=== PATIENT | male | born 1945 | race Caucasian/White ===

== ENCOUNTER → 2017-01-03 | Outpatient (CLI) | payer MEDICARE, OTHER ==
[~2017-01-03] MED LIST: ASPI81TA81; CELE100C PO; CENTTAB9; LISI40TA PO; METO50TA PO; PROM6.256 PO; SERT25TA83 PO; SIMVPOW
[2017-01-03 13:36] LABS: ALKALINE PHOSPHATASE 57 U/L (45-117); ALT (GPT) 22 U/L (12-78); ANION GAP 8 MEQ/L (5-15); AST (GOT) 21 U/L (15-37); BLOOD UREA NITROGEN 20 MG/DL (7-18); CHLORIDE 105 MEQ/L (98-107); GLOMERULAR FILTRATION RATE 60 ML/MIN (>89); GLUCOSE,FASTING 125 MG/DL (74-99); POTASSIUM 4.9 MEQ/L (3.5-5.1); SODIUM (NA) 142 MEQ/L (136-145)
[2017-01-03 14:28] LABS: HEMOGLOBIN A1b 1.8 %; HEMOGLOBIN Ao 84.2 %; HEMOGLOBIN LA1C 2.3 %; HEMOGLOBIN P3 4.1 %
== END ==
LOC: PLAB 10:54
PROVIDERS: ATTEND Family Medicine
DX: E11.9 Type 2 diabetes mellitus without complications (principal)
CPT/HCPCS: 36415; 80053; 83036

== ENCOUNTER 2017-06-27 15:23 | Inpatient (IN) | payer MEDICARE, OTHER ==
[~2017-06-27] VITALS: Ht 180.3 cm; Wt 92.1 kg
[~2017-06-27 15:23] MED LIST changes: -CENTTAB9; -METO50TA PO; -SERT25TA83 PO; +SIMV10TA PO; -SIMVPOW
[2017-06-27] MEDS ORDERED: IOHEXOL 350 MG/ML 10 ML VIAL (for RAD DIAG) IVCONTRAST ONE (15:24)
[2017-06-27 15:26] VITALS: BP 165/88; PULSE 88; RESP 20; TEMP 97.7; O2SAT 98
--- NOTE | 2017-06-27 15:36 | PD ---
Physical Exam Time Seen by Provider: 15:33 Narrative 71yo M c/o R leg pain and swelling today. Dr. Ernst sent for US. SOB yesterday, but not today. Had chest pain w/ breathing yesterday too, but none today. Had chest x-ray yesterday which showed a little bit of fluid per patient. Hx DVT in left leg. Denies anticoagulants. Patient seen in triage. VS reviewed. Awaiting bed placement. Data Data Last Documented VS Vital Signs Date Time Temp Pulse Resp B/P (MAP) Pulse Ox O2 Delivery O2 Flow Rate FiO2 06/27/17 15:26 97.7 88 20 165/88 (113) 98 Room Air MDM Supervised Visit with HIPOLITO: Carmen Louis Jun 27, 2017 15:36
[2017-06-27 15:48] VITALS: BP 130/70; PULSE 80; RESP 19; TEMP 98.7; O2SAT 98
[2017-06-27] MEDS ORDERED: [UNRECOGNIZED DRUG - SUPPLY] (16:12)
--- NOTE | 2017-06-27 16:40 | RADRPT ---
EXAM DATE/TIME: 06/27/2017 16:08 [facility] COMPARISON: No previous studies available for comparison. INDICATIONS : Right leg swelling. MEDICAL HISTORY : Hypertension. Arthritis. Deep venous thrombosis. Hernia. Carpal tunnel. SURGICAL HISTORY : Tonsillectomy. Carpal tunnel syndrome. Cholecystectomy. Knee surgery. ENCOUNTER: Initial ACUITY: 1 day PAIN SCORE: 7/10 LOCATION: Right leg. TECHNIQUE: Venous ultrasound of the leg was performed from the inguinal ligament to the proximal calf. Real-rebecca e, color Doppler and spectral tracing, compression and augmentation techniques were used. FINDINGS: There is noncompressible occlusive thrombosis in the distal superficial femoral vein, popliteal vein and right peroneal vein. This demonstrated no color flow. The visualized portion of the right iliac v ein and common femoral vein are patent. The greater saphenous vein is patent as well. CONCLUSION: Deep venous thrombosis. Sean Mendoza MD on June 27, 2017 at 16:36 Board Certified Radiologist. This report was verified electronically.
[2017-06-27 16:50] LABS: BICARBONATE 27.6 MEQ/L (21.0-32.0)
[2017-06-27] MEDS ORDERED: XARE15TA PO (16:55)
--- NOTE | 2017-06-27 16:55 | PD ---
HPI . Right leg swelling Chief Complaint: Edema Time Seen by Provider: 15:45 Travel History International Travel<30 days: No Contact w/Intl Traveler<30days: No Traveled to known affect area: No History of Present Illness HPI This patient presents with the acute onset of swelling of the right lower extremity. He noticed it this morning. He states that his Is a little sore. He denies any chest pain or shortness of breath. He denies any known risk factors for DVT such as recent travel, hospitalization, surgery, history of cancer, smoking. His pain is exacerbated by walking. He rates it 7/10. PFSH Past Medical History Arthritis: Yes (NECK, KNEE) Cardiovascular Problems: Yes Diminished Hearing: No Gastrointestinal Disorders: Yes GERD: Yes (history of) Hypertension: Yes Medical other: Yes (DVT) Neurologic: No Respiratory: No Past Surgical History Abdominal Surgery: Yes (hernia) Cholecystectomy: Yes Tonsillectomy: Yes Social History Alcohol Use: No Tobacco Use: No Substance Use: No Allergies-Medications (Allergen,Severity, Reaction): Coded Allergies: benazepril (Verified Adverse Reaction, Intermediate, cough, 06/27/17) In early 2010, pt decided he wanted to resume ANTONIO as it worked on BP and cough wasnt that bad. minimal cough since. captopril (Verified Adverse Reaction, Intermediate, cough, 06/27/17) In 2010, pt decided he wanted to resume ANTONIO as it worked on BP and cough wasnt that bad. minimal cough since. enalaprilat (Verified Adverse Reaction, Intermediate, cough, 06/27/17) In 2010, pt decided he wanted to resume ANTONIO as it worked on BP and cough wasnt that bad. minimal cough since. fosinopril (Verified Adverse Reaction, Intermediate, cough, 06/27/17) In early 2010, pt decided he wanted to resume ANTONIO as it worked on BP and cough wasnt that bad. minimal cough since. lisinopril (Verified Adverse Reaction, Intermediate, cough, 06/27/17) In early 2010, pt decided he wanted to resume ANTONIO as it worked on BP and cough wasnt that bad. minimal cough since. quinapril (Verified Adverse Reaction, Intermediate, cough, 06/27/17) In 2010, pt decided he wanted to resume ANTONIO as it worked on BP and cough wasnt that bad. minimal cough since. Reported Meds & Prescriptions Reported Meds & Active Scripts Active Xarelto (Rivaroxaban) 15 Mg Tab 15 Mg PO Q12HR 21 Days [Oral Appliance Thpy] 1 Applic .XX DIRECTED Oral Appliance Therapy (Treatment Code E0486) For Treatment of Obstructive Sleep Apnea (G47.33) Lisinopril 40 Mg Tab 40 Mg PO DAILY Simvastatin 10 Mg Tab 10 Mg PO DAILY Celebrex (Celecoxib) 100 Mg Cap 100 Mg PO BID PRN Reported Aspir-81 (Aspirin) 81 Mg Tabdr 81 Mg DAILY Review of Systems Except as stated in HPI: all other systems reviewed are Neg Cardiovascular: No: Chest Pain or Discomfort Respiratory: No: Shortness of Breath Musculoskeletal: Positive: Myalgias, Edema Physical Exam Narrative GENERAL: Awake and alert and in no acute distress. SKIN: Warm and dry. There is no discoloration of his right lower extremity. HEAD: Atraumatic. Normocephalic. EYES: Pupils equal and round. NECK: Trachea midline. CARDIOVASCULAR: Regular rate and rhythm. RESPIRATORY: No accessory muscle use. MUSCULOSKELETAL: No obvious deformities. Mild swelling of the right lower extremity. Some calf tenderness. NEUROLOGICAL: Awake and alert. No obvious cranial nerve deficits. Motor grossly within normal limits. Normal speech. PSYCHIATRIC: Appropriate mood and affect; insight and judgment normal. Data Data Last Documented VS Vital Signs Date Time Temp Pulse Resp B/P (MAP) Pulse Ox O2 Delivery O2 Flow Rate FiO2 06/27/17 15:48 98.7 80 19 130/70 (90) 98 Room Air Orders Orders Us Leg Venous Doppler (06/27/17 15:45) Basic Metabolic Panel (Bmp) (06/27/17 15:46) ^ Saline Lock (06/27/17 15:46) Ct Pulmonary Angiogram (06/27/17 15:46) Iohexol 350 Inj (Omnipaque 350 Inj) (06/27/17 15:24) Labs Laboratory Tests Test 06/27/17 16:12 Blood Urea Nitrogen 21 MG/DL Creatinine 1.02 MG/DL Random Glucose 103 MG/DL Calcium Level 8.6 MG/DL Sodium Level 141 MEQ/L Potassium Level 5.0 MEQ/L Chloride Level 107 MEQ/L Carbon Dioxide Level 27.6 MEQ/L Anion Gap 6 MEQ/L Estimat Glomerular Filtration Rate 72 ML/MIN MDM Medical Decision Making Medical Screen Exam Complete: Yes Emergency Medical Condition: Yes Differential Diagnosis Differential diagnosis of leg pain includes but is not limited to lumbar radiculopathy, arthritis, myalgias, DVT. Narrative Course Patient presents for the evaluation of right lower extremity pain and swelling. He is having no chest pain or shortness of breath. Last Impressions Lower Extremity Ultrasound 06/27/17 1545 Signed Impressions: Service Date/Time: May 16:08 - CONCLUSION: Deep venous thrombosis. Sean Mendoza MD CT for PE: 1. Pulmonary embolism in both lower lobe pulmonary arteries. 2. Small left effusion with airspace disease in the posterior left lower lobe. This patient should be a good candidate for treatment with an oral anticoagulant such as Xarelto. He is hemodynamically stable without any difficulty breathing. Diagnosis Primary Impression: DVT (deep venous thrombosis) Qualified Codes: I82.4Y1 - Acute embolism and thrombosis of unspecified deep veins of right proximal lower extremity Additional Impression: Pulmonary emboli Qualified Codes: I26.99 - Other pulmonary embolism without acute cor pulmonale Referrals: Mendel Ernst MD 1 week Patient Instructions: Deep Vein Thrombosis Prevention (DC), General Instructions, Pulmonary Embolism (DC) Scripts Rivaroxaban (Xarelto) 15 Mg Tab 15 MG PO Q12HR for Blood Clot Prevention for 21 Days, TAB 0 Refills Prov: Leanna Kimball MD 06/27/17 Disposition: 01 DISCHARGE HOME Condition: Stable Leanna Kimball MD Jun 27, 2017 16:55
--- NOTE | 2017-06-27 17:36 | RADRPT ---
EXAM DATE/TIME: 06/27/2017 17:12 [facility] COMPARISON: No previous studies available for comparison. INDICATIONS : Short of breath with right leg pain. Deep venous thrombosis on ultrasound. IV CONTRAST: 60 cc Omnipaque 350 (iohexol) IV RADIATION DOSE: 19.62 CTDIvol (mGy) MEDICAL HISTORY : Hypertension. DVT SURGICAL HISTORY : Cholecystectomy. Hernia repair. ENCOUNTER: Initial ACUITY: 1 day PAIN SCALE: 4/10 LOCATION: Right leg pain and swelling TECHNIQUE: Volumetric scanning of the chest was performed using a pulmonary embolism protocol MIP images were re constructed. Using automated exposure control and adjustment of the mA and/or kV according to patien t size, radiation dose was kept as low as reasonably achievable to obtain optimal diagnostic quality images. DICOM format image data is available electronically for review and comparison. Follow-up recommendations for detected pulmonary nodules are based at a minimum on nodule size and pa tient risk factors according to Fleischner Society Guidelines. FINDINGS: PULMONARY ARTERIES: The main pulmonary artery and right and left branch vessels are patent. The upper lobe pulmonary jurgen maritza are patent with no filling defects. There are small areas of pulmonary emboli with filling defec ts in both lower lobe pulmonary arteries. LUNGS: There is no pneumothorax . There is patchy infiltrate in the posterior left lower lobe. There is mild scarring and/or atelectasis in the right posterior lung base. No concerning pulmonary nodule is visu alized. PLEURAE: There is a small left pleural effusion. MEDIASTINUM: There is good visualization of the great vessels of the middle mediastinum. No evidence of mediastin al or hilar adenopathy/mass. Coronary artery calcifications are present. MUSCULOSKELETAL: Within normal limits for patient age. MISCELLANEOUS: The visualized upper abdominal organs demonstrate no acute abnormality. CONCLUSION: 1. Pulmonary embolism in both lower lobe pulmonary arteries. 2. Small left effusion with airspace disease in the posterior left lower lobe. Sean Mendoza MD on June 27, 2017 at 17:30 Board Certified Radiologist. This report was verified electronically.
--- NOTE | 2017-06-27 19:14 | HHI.HP ---
HPI Service Family Medicine Primary Care Physician Mendel Ernst MD Admission Diagnosis DVT, PE Diagnoses: International Travel<30 Days: No Contact w/Intl Traveler<30days: No Known Affected Area: No History of Present Illness Mr. Lara is a 71 yo M with PMH of prior DVT 10 years ago, HTN, hyperlipidemia who presents as with recent shortness of breath and chest pain. Patient reports that he was sent to ED from [facility] due to right leg pain, chest pain, and shortness of breath. Per patient and EMR, patient saw Dr. Ernst yesterday for chest pain and shortness of breath. PE probability was deemed low at that time due to normal O2 saturation, lack of tachycardia, lack of LE asymmetry or pain, lack of immobility or other risk factors predisposing to thrombosis. CXR ordered to further establish cause of chest pain. Patient then returned to [facility] due to continued pain in chest, shortness of breath, and presence of RLE pain which limited ambulation. Patient was notified of reassuring CXR at that time with exception of suspected small L effusion. Patient was found to have RLE pain at that time and was sent to [place] ED for evaluation of thromboembolic disease. Patient does not report other symptoms in association with chest pain, shortness of breath, and right lower extremity pain. Patient describes his chest pain as occurring with deep inspirations but not with shallow breaths. Patient does not report fever, mucus production, brother suggestion of respiratory infection. Patient states that his previously reported right leg pain is resolved; patient suspects this to be secondary to laying supine in ED. Patient does not report headaches, shortness of breath, dizziness, problems with eating/drinking, problems with urination or bowel movements. Patient does not report any recent prolonged immobility or surgeries. Patient does not report any known history of malignancy; he states he is due for colonoscopy in approximately 1 year [q5 year follow-up due to history of polyp] . Patient does not report any weight loss, hemoptysis, brother suggestion of malignancy. Interval history: Patient seen in [place] ED; DVT demonstrated in RLE Doppler US and PE demonstrated in CTA. In ED, it was initially planned for patient to begin outpatient anticoagulation due to stable clinical status; however, patient's insisted on being admitted. Decision made to admit patient for observation while initiating Xarelto. Review of Systems Constitutional: DENIES: Fever, Chills Eyes: DENIES: Blurred vision, Eye pain Ears, nose, mouth, throat: DENIES: Nasal discharge, Running Nose Respiratory: COMPLAINS OF: Shortness of breath, DENIES: Cough Cardiovascular: COMPLAINS OF: Chest pain, DENIES: Palpitations Gastrointestinal: DENIES: Abdominal pain, Nausea Musculoskeletal: DENIES: Joint pain, Back pain Integumentary: DENIES: Abnormal pigmentation, Rash Hematologic/lymphatic: DENIES: Bruising, Lymphadenopathy Neurologic: DENIES: Abnormal gait, Headache Psychiatric: DENIES: Anxiety, Confusion Past Family Social History Past Medical History Per Patient DVT ~10 yrs prior; no known provocation Per EMR HTN hyperglycemia a1cs 6;s DJD GERD 2 ED visits for infected tick bite 2009 approx. Past Surgical History Per EMR/patient T A childhood grade school - Hernia ? R 11 - Lap adam 1994 - R carpal tunnel 1994 - R knee scope Reported Medications Reported Meds & Active Scripts Active Xarelto (Rivaroxaban) 15 Mg Tab 15 Mg PO Q12HR 21 Days [Oral Appliance Thpy] 1 Applic .XX DIRECTED Oral Appliance Therapy (Treatment Code E0486) For Treatment of Obstructive Sleep Apnea (G47.33) Lisinopril 40 Mg Tab 40 Mg PO DAILY Simvastatin 10 Mg Tab 10 Mg PO DAILY Celebrex (Celecoxib) 100 Mg Cap 100 Mg PO BID PRN Reported Aspir-81 (Aspirin) 81 Mg Tabdr 81 Mg DAILY Allergies: Coded Allergies: benazepril (Verified Adverse Reaction, Intermediate, cough, 06/27/17) In early 2010, pt decided he wanted to resume ANTONIO as it worked on BP and cough wasnt that bad. minimal cough since. captopril (Verified Adverse Reaction, Intermediate, cough, 06/27/17) In early 2010, pt decided he wanted to resume ANTONIO as it worked on BP and cough wasnt that bad. minimal cough since. enalaprilat (Verified Adverse Reaction, Intermediate, cough, 06/27/17) In early 2010, pt decided he wanted to resume ANTONIO as it worked on BP and cough wasnt that bad. minimal cough since. fosinopril (Verified Adverse Reaction, Intermediate, cough, 06/27/17) In early 2010, pt decided he wanted to resume ANTONIO as it worked on BP and cough wasnt that bad. minimal cough since. lisinopril (Verified Adverse Reaction, Intermediate, cough, 06/27/17) In early 2010, pt decided he wanted to resume ANTONIO as it worked on BP and cough wasnt that bad. minimal cough since. quinapril (Verified Adverse Reaction, Intermediate, cough, 06/27/17) In early 2010, pt decided he wanted to resume ANTONIO as it worked on BP and cough wasnt that bad. minimal cough since. Family History Father and mother- in late 90s/age 100. 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 SKIN: Warm and dry, no rashes appreciated EYES: No scleral icterus, injection, or drainage. EOM grossly intact. PERRLA HENT: Head: Normocephalic. Mouth: moist membranes NECK: No appreciated lymphadenopathy or thyromegaly CARDIOVASCULAR: Regular rate and rhythm without murmurs. Normal peripheral perfusion in lower extremities. No LE edema RESPIRATORY: Normal respiratory rate. Lungs clear to auscultation bilaterally. GASTROINTESTINAL: Abdomen soft, nondistended, nontender. Bowel sounds normal. MUSCULOSKELETAL: No lower extremity swelling. No appreciated calf asymmetry. Calves both without pain to palpation NEURO/PSYCH: Awake, alert, and oriented. Cranial nerves grossly normal. Grossly normal motor and sensory function. Laboratory Laboratory Tests Test 06/27/17 16:12 Blood Urea Nitrogen 21 Creatinine 1.02 Random Glucose 103 Calcium Level 8.6 Sodium Level 141 Potassium Level 5.0 Chloride Level 107 Carbon Dioxide Level 27.6 Anion Gap 6 Estimat Glomerular Filtration Rate 72 Result Diagram: 06/27/[address] Angiography 06/27/17 1548 Signed Impressions: Service Date/Time: May 17:12 - CONCLUSION: 1. Pulmonary embolism in both lower lobe pulmonary arteries. 2. Small left effusion with airspace disease in the posterior left lower lobe. Sean Mendoza MD Lower Extremity Ultrasound 06/27/17 1545 Signed Impressions: Service Date/Time: May 16:08 - CONCLUSION: Deep venous thrombosis. Sean Mendoza MD [place] VTE Risk Assessment Jose Juan VTE Risk Assessment: Mod/High Risk (score >= 2) Caprini Risk Assessment Model Point Value = 1 Point Value = 2 Point Value = 3 Point Value = 5 Age 41-60 Minor surgery BMI > 25 kg/m2 Swollen legs Varicose veins or History of unexplained or recurrent spontaneous Oral contraceptives or hormone replacement Sepsis (< 1 month) Serious lung disease, including pneumonia (< 1 month) Abnormal pulmonary function Acute myocardial infarction Congestive heart failure (< 1 month) History of inflammatory bowel disease Medical patient at bed rest Age 61-74 Arthroscopic surgery Major open surgery (> 45 min) Laparoscopic surgery (> 45 min) Malignancy Confined to bed (> 72 hours) Immobilizing plaster cast Central venous access Age >= 75 History of VTE Family history of VTE Factor V Leiden Prothrombin [id number] Lupus anticoagulant Anticardiolipin antibodies Elevated serum homocysteine Heparin-induced thrombocytopenia Other congenital or acquired thrombophilia Stroke (< 1 month) Elective arthroplasty Hip, pelvis, or leg fracture Acute spinal cord injury (< 1 month) Prophylaxis Regimen Total Risk Factor Score Risk Level Prophylaxis Regimen 0-1 Low Early ambulation 2 Moderate Order ONE of the following: *Sequential Compression Device (SCD) *Heparin 5000 units SQ BID 3-4 Higher Order ONE of the following medications: *Heparin 5000 units SQ TID *Enoxaparin/Lovenox 40 mg SQ daily (WT < 150 kg, CrCl > 30 mL/min) *Enoxaparin/Lovenox 30 mg SQ daily (WT < 150 kg, CrCl > 10-29 mL/min) *Enoxaparin/Lovenox 30 mg SQ BID (WT < 150 kg, CrCl > 30 mL/min) AND/OR *Sequential Compression Device (SCD) 5 or more Highest Order ONE of the following medications: *Heparin 5000 units SQ TID (Preferred with Epidurals) *Enoxaparin/Lovenox 40 mg SQ daily (WT < 150 kg, CrCl > 30 mL/min) *Enoxaparin/Lovenox 30 mg SQ daily (WT < 150 kg, CrCl > 10-29 mL/min) *Enoxaparin/Lovenox 30 mg SQ BID (WT < 150 kg, CrCl > 30 mL/min) AND *Sequential Compression Device (SCD) Assessment and Plan Assessment and Plan Mr. Lara is a 71 yo M with: Code Status Full code Problem List: (1) Pulmonary emboli ICD Codes: I26.99 - Other pulmonary embolism without acute cor pulmonale Status: Acute Plan: -Will obtain CBC, PT/INT/PTT -Will initiate Xarelto 15mg BID - referral for assistance in obtaining outpatient Xarelto -Discussed with patient that he could further discuss with PCP regarding Hematology workup for hypercoaguability. Since he did not have obvious risk factors such as immobility or known malignancy, it was recommended that he continue colon cancer and skin cancer screening routinely Impression: 71-year-old male with PMH of DVT approximately 10 years ago with recent chest pain and shortness of breath. Imaging confirmation of DVT. Normal HR and pulse oximetry. Seemingly eligible for outpatient therapy as stable VS, low bleeding risk, no renal insufficiency CTA: Pulmonary embolism in both lower lobe pulmonary arteries. Small left effusion with air space disease in posterior left lower lobe Right lower extremity ultrasound: DVT BMP with Cr of 1.02 (2) HTN (hypertension), benign ICD Codes: I10 - Essential (primary) hypertension Status: Chronic Plan: -Continue home Lisinopril 40mg daily Impression: Initially hypertensive in ED; currently normotensive. Normotensive at home per EMR (3) Hyperglycemia ICD Codes: R73.9 - Hyperglycemia, unspecified Status: Chronic Plan: -Will give regular diet overnight; suspect discharge tomorrow Impression: A1C 6.1 12/2016 (4) DJD (degenerative joint disease) ICD Codes: M19.90 - Unspecified osteoarthritis, unspecified site Status: Chronic Plan: -Will give Tylenol PRN while hospitalized Impression: On home Celecoxib (5) Hyperlipemia ICD Codes: E78.5 - Hyperlipidemia Status: Chronic Plan: -Continue home Simvastatin 10mg daily Impression: On home Simvastatin 10mg daily (6) ASCVD (arteriosclerotic cardiovascular disease) ICD Codes: I25.10 - Atherosclerotic heart disease of [place] coronary artery without angina pectoris Status: Chronic Plan: -Continue ASA 81mg daily -Continue HTN control -Continue statin (7) Fluids, Electrolytes, and Nutrition Plan: Fluids: None; regular intake Diet: Regular basic diet Electrolytes: BMP on admission grossly wnl Physician Certification 2 Midnight Certification Type: Admission for Inpatient Services Order for Inpatient Services The services are ordered in accordance with Medicare regulations or non- Medicare payer requirements, as applicable. In the case of services not specified as inpatient-only, they are appropriately provided as inpatient services in accordance with the 2-midnight benchmark. Estimated LOS (days): 2 days is the estimated time the patient will need to remain in the hospital, assuming treatment plan goals are met and no additional complications. Post-Hospital Plan: Home Problem Qualifiers (1) Pulmonary emboli: Qualified Codes: I26.99 - Other pulmonary embolism without acute cor pulmonale Kareem Aden MD, R3 Jun 27, 2017 19:14
[2017-06-27] MEDS ORDERED: MAGNESIUM HYDROXIDE SUSP 30 ML CUP PO PRN (19:15)
[2017-06-27] MEDS ORDERED: LACTULOSE SYRUP 20 GM/30 ML CUP PO PRN (19:15)
[2017-06-27] MEDS ORDERED: SODIUM CHLORIDE 0.9% FLUSH 10 ML FLUSH IV FLUSH PRN (19:15)
[2017-06-27] MEDS ORDERED: ACETAMINOPHEN 325 MG TAB PO PRN ×2 (19:15→20:45)
[2017-06-27] MEDS ORDERED: NALOXONE HCL 0.4 MG/ML AMP IV PRN (19:15)
[2017-06-27] MEDS ORDERED: SENNOSIDES 8.6 MG TAB PO PRN (19:15)
[2017-06-27] MEDS ORDERED: BISACODYL 10 MG SUPP RECTAL PRN (19:15)
[2017-06-27] MEDS ORDERED: oxyCODONE/ACETAMINOPHEN 5 MG/325 MG TAB PO PRN (20:45)
[2017-06-27] MEDS ORDERED: SODIUM CHLORIDE 0.9% FLUSH 10 ML FLUSH IV FLUSH SCH (21:00)
[2017-06-27 21:19] LABS: HEMATOCRIT 38.4 % (39.0-51.0); MEAN CELL VOLUME 88.1 FL (80.0-100.0); MEAN CORPUSCULAR HEMOGLOBIN 29.2 PG (27.0-34.0); MEAN CORPUSCULAR HGB CONC 33.2 % (32.0-36.0); PLATELET COUNT 162 TH/MM3 (150-450); RED BLOOD COUNT 4.36 MIL/MM3 (4.50-5.90); RED CELL DISTRIBUTION WIDTH 12.8 % (11.6-17.2); REVIEW FLAG FINAL; WHITE BLOOD COUNT 6.6 TH/MM3 (4.0-11.0)
[2017-06-27 21:32] LABS: APTT (PATIENT) 25.1 SEC (24.3-30.1); PROTHROMBIN TIME - PATIENT 10.9 SEC (9.8-11.6)
[2017-06-27 22:25] VITALS: BP 151/76; PULSE 80; RESP 16; TEMP 97.2; O2SAT 98
[2017-06-27] MEDS: RIVAROXABAN 15 MG TAB PO SCH (23:02)
[2017-06-27] MEDS: DOCUSATE SODIUM 50 MG/SENNA 8.6 MG TAB PO SCH (23:03)
[2017-06-28 04:00] VITALS: BP 137/69; PULSE 77; RESP 16; TEMP 97.3; O2SAT 97
--- NOTE | 2017-06-28 07:52 | HHI.FPPN ---
Objective Vitals Vital Signs Date Time Temp Pulse Resp B/P (MAP) Pulse Ox O2 Delivery O2 Flow Rate FiO2 06/28/17 04:00 97.3 77 16 137/69 (91) 97 06/27/17 22:25 97.2 80 16 151/76 (101) 98 06/27/17 15:48 98.7 80 19 130/70 (90) 98 Room Air 06/27/17 15:26 97.7 88 20 165/88 (113) 98 Room Air I/O 06/27/17 06/27/17 06/27/17 06/28/17 06/28/17 06/28/17 06:59 14:59 22:59 06:59 14:59 22:59 Intake Total 480 ml Output Total 400 ml Balance 80 ml Intake Oral 480 ml Output Urine Total 400 ml Result Diagram: 06/27/17211106/27/17 1612 A/P Assessment and Plan Mr. Lara is a 71 yo M with: Problem List: (1) Pulmonary emboli ICD Codes: I26.99 - Other pulmonary embolism without acute cor pulmonale Status: Acute Plan: -Will obtain CBC, PT/INT/PTT -Will initiate Xarelto 15mg BID - referral for assistance in obtaining outpatient Xarelto -Discussed with patient that he could further discuss with PCP regarding Hematology workup for hypercoaguability. Since he did not have obvious risk factors such as immobility or known malignancy, it was recommended that he continue colon cancer and skin cancer screening routinely Impression: 71-year-old male with PMH of DVT approximately 10 years ago with recent chest pain and shortness of breath. Imaging confirmation of DVT. Normal HR and pulse oximetry. Seemingly eligible for outpatient therapy as stable VS, low bleeding risk, no renal insufficiency CTA: Pulmonary embolism in both lower lobe pulmonary arteries. Small left effusion with air space disease in posterior left lower lobe Right lower extremity ultrasound: DVT BMP with Cr of 1.02 (2) HTN (hypertension), benign ICD Codes: I10 - Essential (primary) hypertension Status: Chronic Plan: -Continue home Lisinopril 40mg daily Impression: Initially hypertensive in ED; currently normotensive. Normotensive at home per EMR (3) Hyperglycemia ICD Codes: R73.9 - Hyperglycemia, unspecified Status: Chronic Plan: -Will give regular diet overnight; suspect discharge tomorrow Impression: A1C 6.1 12/2016 (4) DJD (degenerative joint disease) ICD Codes: M19.90 - Unspecified osteoarthritis, unspecified site Status: Chronic Plan: -Will give Tylenol PRN while hospitalized Impression: On home Celecoxib (5) Hyperlipemia ICD Codes: E78.5 - Hyperlipidemia Status: Chronic Plan: -Continue home Simvastatin 10mg daily Impression: On home Simvastatin 10mg daily (6) ASCVD (arteriosclerotic cardiovascular disease) ICD Codes: I25.10 - Atherosclerotic heart disease of [place] coronary artery without angina pectoris Status: Chronic Plan: -Continue ASA 81mg daily -Continue HTN control -Continue statin (7) Fluids, Electrolytes, and Nutrition Plan: Fluids: None; regular intake Diet: Regular basic diet Electrolytes: BMP on admission grossly wnl Problem Qualifiers (1) Pulmonary emboli: Qualified Codes: I26.99 - Other pulmonary embolism without acute cor pulmonale Edvin Holt MD, R3 Jun 28, 2017 07:52
[2017-06-28 08:00] VITALS: BP 148/79; PULSE 73; RESP 18; TEMP 96.6; O2SAT 98
[2017-06-28] MEDS: DOCUSATE SODIUM 50 MG/SENNA 8.6 MG TAB PO SCH (08:12)
[2017-06-28] MEDS: RIVAROXABAN 15 MG TAB PO SCH (08:26)
[2017-06-28] MEDS ORDERED: LISINOPRIL 20 MG TAB PO SCH (09:00)
[2017-06-28] MEDS ORDERED: PRAVASTATIN SOD 20 MG TAB PO SCH (09:00)
[2017-06-28] MEDS ORDERED: ASPIRIN EC 81 MG TABEC PO SCH (09:00)
[2017-06-28] MEDS ORDERED: XARE15TA PO (10:14)
--- NOTE | 2017-06-28 10:14 | HHI.DCPOC ---
Discharge Care Plan Diagnosis: (1) DJD (degenerative joint disease) (2) HTN (hypertension), benign (3) DVT (deep venous thrombosis) (4) Pulmonary emboli Goals to Promote Your Health * To prevent worsening of your condition and complications * To maintain your health at the optimal level Directions to Meet Your Goals Take your medications as prescribed Follow your dietary instruction Follow activity as directed Keep your appointments as scheduled Take your immunizations and boosters as scheduled If your symptoms worsen call your PCP, if no PCP go to Urgent Care Center or Emergency Room Smoking is Dangerous to Your Health. Avoid second hand smoke Call the 24-hour hour crisis hotline for domestic abuse at Edvin Holt MD, R3 Jun 28, 2017 10:14
--- NOTE | 2017-06-28 12:18 | HHI.FPPN ---
Subjective Remarks Patient feeling well. Pain controlled. No hemoptysis or bleeding. Breathing is comfortable. No fevers. (Edvin Holt MD, R3) Objective Vitals Vital Signs Date Time Temp Pulse Resp B/P (MAP) Pulse Ox O2 Delivery O2 Flow Rate FiO2 06/28/17 08:00 96.6 73 18 148/79 (102) 98 06/28/17 04:00 97.3 77 16 137/69 (91) 97 06/27/17 22:25 97.2 80 16 151/76 (101) 98 06/27/17 15:48 98.7 80 19 130/70 (90) 98 Room Air 06/27/17 15:26 97.7 88 20 165/88 (113) 98 Room Air I/O 06/27/17 06/27/17 06/27/17 06/28/17 06/28/17 06/28/17 07:00 15:00 23:00 07:00 15:00 23:00 Intake Total 480 ml Output Total 400 ml Balance 80 ml Intake Oral 480 ml Output Urine Total 400 ml (Edvin Holt MD, R3) Result Diagram: 06/27/17 2112 06/27/17 1612 Imaging Last [address] Angiography 06/27/17 1546 Signed Impressions: Service Date/Time: May 17:12 - CONCLUSION: 1. Pulmonary embolism in both lower lobe pulmonary arteries. 2. Small left effusion with airspace disease in the posterior left lower lobe. Sean Mendoza MD Lower Extremity Ultrasound 06/27/17 1545 Signed Impressions: Service Date/Time: May 16:08 - CONCLUSION: Deep venous thrombosis. Sean Mendoza MD Objective Remarks GEN: NAD HEENT: PERRL EOMI CV: RRR, sinus no murmurs Resp: CTAB, no wheezing or rales Ext: Right lower extremity not significantly swollen in comparison to left leg, no tenderness to calf palpation. (Edvin Holt MD, R3) A/P Assessment and Plan Mr. Lara is a 71 yo M with: (Edvin Holt MD, R3) Attending Attestation THIS CASE WAS DISCUSSED WITH THE RESIDENT DR Minerva HOLT. I HAVE REVIEWED THE RECORD, SEEN AND INTERVIEWED PATIENT, AND AGREE WITH THE ABOVE NOTE AND PLAN OF CARE WAS DISCUSSED. I HAVE AUTHORIZED THE ORDERS.. (Tod Marquez MD) Problem List: (1) Pulmonary emboli ICD Codes: I26.99 - Other pulmonary embolism without acute cor pulmonale Status: Acute Plan: -Will initiate Xarelto 15mg BID -CM referral for assistance in obtaining outpatient Xarelto -Discussed with patient that he could further discuss with PCP regarding Hematology workup for hypercoaguability. Since he did not have obvious risk factors such as immobility or known malignancy, it was recommended that he continue colon cancer and skin cancer screening routinely Impression: 71-year-old male with PMH of DVT approximately 10 years ago with recent chest pain and shortness of breath. Imaging confirmation of DVT. Normal HR and pulse oximetry. Seemingly eligible for outpatient therapy as stable VS, low bleeding risk, no renal insufficiency CTA: Pulmonary embolism in both lower lobe pulmonary arteries. Small left effusion with air space disease in posterior left lower lobe Right lower extremity ultrasound: DVT BMP with Cr of 1.02 (2) HTN (hypertension), benign ICD Codes: I10 - Essential (primary) hypertension Status: Chronic Plan: -Continue home Lisinopril 40mg daily Impression: Initially hypertensive in ED; currently normotensive. Normotensive at home per EMR (3) Hyperglycemia ICD Codes: R73.9 - Hyperglycemia, unspecified Status: Chronic Plan: -Will give regular diet overnight; discharge today. Impression: A1C 6.1 12/2016 (4) DJD (degenerative joint disease) ICD Codes: M19.90 - Unspecified osteoarthritis, unspecified site Status: Chronic Plan: -Will give Tylenol PRN while hospitalized Impression: On home Celecoxib (5) Hyperlipemia ICD Codes: E78.5 - Hyperlipidemia Status: Chronic Plan: -Continue home Simvastatin 10mg daily Impression: On home Simvastatin 10mg daily (6) ASCVD (arteriosclerotic cardiovascular disease) ICD Codes: I25.10 - Atherosclerotic heart disease of [id number] coronary artery without angina pectoris Status: Chronic Plan: -Continue ASA 81mg daily -Continue HTN control -Continue statin (7) Fluids, Electrolytes, and Nutrition Plan: Fluids: None; regular intake Diet: Regular basic diet Electrolytes: BMP on admission grossly wnl Dispo: Hemodynamically stable - pain controlled. Will send home on Xarelto as above. Will take 15 mg BID x 21 days followed by 20 mg daily. Follow up with PCP in 3-5 days. Advised against heavy exercise until the clot resolves / organizes (1-2 weeks). Advised about bleeding risks and irreversibility of xarelto. He is aware. (Edvin Holt MD, R3) Problem Qualifiers (1) Pulmonary emboli: Qualified Codes: I26.99 - Other pulmonary embolism without acute cor pulmonale Edvin Holt MD, R3 Jun 28, 2017 12:18 Tod Marquez MD Jun 28, 2017 15:47
[2017-06-28] MEDS ORDERED: OXYC1TAB63 PO (12:20)
[2017-07-03] MEDS ORDERED: XARE20TA PO (11:50)
[2017-07-18] MEDS ORDERED: OXYC1TAB63 PO (08:19)
[2017-07-18] MEDS ORDERED: SERT25TA83 PO (08:20)
[2017-08-19] MEDS ORDERED: OXYC1TAB63 PO (11:10)
== END 2017-06-28 13:52 | disposition home or self-care (01) | DRG 176 ==
LOC: NEPE 15:23 → NEDA 18:01 → N06A 22:16
PROVIDERS: ADMIT Family Medicine; ATTEND Family Medicine
DX: I26.99 Other pulmonary embolism without acute cor pulmonale (principal); I82.411 Acute embolism and thrombosis of right femoral vein; I10 Essential (primary) hypertension; I82.431 Acute embolism and thrombosis of right popliteal vein; Z86.718 Personal history of other venous thrombosis and embolism; R73.9 Hyperglycemia, unspecified; M19.90 Unspecified osteoarthritis, unspecified site; E78.5 Hyperlipidemia, unspecified; I25.10 Atherosclerotic heart disease of native coronary artery without angina pectoris; Z87.891 Personal history of nicotine dependence
CPT/HCPCS: 71275; 80048; 85027; 85610; 85730; 93971; Q9967